=== PATIENT | male | born 1990 | race Caucasian/White ===

== ENCOUNTER 2017-12-16 01:35 | Emergency (ER) | payer BC ==
[~2017-12-16] VITALS: Ht 175.3 cm; Wt 86.2 kg
[~2017-12-16 01:35] MED LIST: ADDERALL 20 MG20 M1 PO; HYDROCODONE-AP1 EA11
[2017-12-16] MEDS ORDERED: XANAX 0.25 MG0.25 MG PO (01:41)
[2017-12-16 02:25] VITALS: BP 117/66
== END 2017-12-16 02:25 | disposition home or self-care (01) ==
LOC: M.ERS 01:35
DX: M79.641 Pain in right hand (principal)